=== PATIENT | male | born 1950 | race Caucasian/White ===

== ENCOUNTER 2019-04-19 13:11 | Outpatient (CLI) | payer OTHER | END 2019-04-19 23:59 | disposition home or self-care (01) | LOC: CVU 13:11 | PROVIDERS: ATTEND Orthopaedic Surgery | DX: I35.1 Nonrheumatic aortic (valve) insufficiency (principal); I25.9 Chronic ischemic heart disease, unspecified | CPT/HCPCS: 93306 ==